=== PATIENT | male | born 1980 | race Hispanic/Latino ===

== ENCOUNTER 2016-11-25 14:03 | Emergency (ER) | payer OTHER ==
[~2016-11-25] VITALS: Ht 182.9 cm; Wt 87.1 kg
[~2016-11-25 14:03] MED LIST: HYDROXYZINE HCL25 M2 PO; HYDROXYZINE HCL50 M1 PO; MEDROL4 M2 PO; NAPROSYN500 M1 PO; PREDNISONE10 M2 PO; PRILOSEC20 M1 PO; TRAMADOL HCL50 M1 PO
[2016-11-25 14:32] LABS: ABSOLUTE BASOPHIL COUNT 0 /CUMM (0.0-0.2); ABSOLUTE EOSINOPHIL COUNT 0.2 /CUMM (0.0-0.7); ABSOLUTE GRANULOCYTE CT 4.3 /CUMM (1.4-6.5); ABSOLUTE LYMPH COUNT 2.8 /CUMM (1.2-3.4); ABSOLUTE MONOCYTE COUNT 0.6 /CUMM (0.10-0.60); BASOPHIL % 0.4 % (0.0-2.0); EOSINOPHIL % 2.1 % (0-5); GRANULOCYTE % 54.5 % (42.2-75.2); HEMATOCRIT 40.3 % (42-52); MEAN CORPUSCULAR HGB 27.8 PG (27.0-31.0); MEAN CORPUSCULAR HGB CONC 33.9 G/DL (33.0-37.0); MEAN CORPUSCULAR VOLUME 82.1 FL (80.0-94.0); MEAN PLATELET VOLUME 8.8 FL (7.4-10.4); PLATELET COUNT 261 /CUMM (130-400); RBC DISTRIBUTION WIDTH 13.8 % (11.5-14.5); RED BLOOD CELL CT 4.91 /CUMM (4.70-6.10); WHITE BLOOD CELL COUNT 7.9 /CUMM (4.8-10.8)
--- NOTE | 2016-11-25 16:22 | ED GI/GU/ABDOMINAL COMPLAINT ---
History of Present Illness General Chief Complaint: General Adult Stated Complaint: RECTAL BLEEDING Source: patient Exam Limitations: no limitations Vital Signs & Intake/Output Vital Signs & Intake/Output Vital Signs Date Time Temp Pulse Resp B/P Pulse O2 O2 Flow FiO2 Ox Delivery Rate 11/25 1630 98.4 70 18 122/59 97 Room Air Room Air Allergies Coded Allergies: Penicillins (UNKNOWN PER PT 11/25/16) Reconcile Medications Alprazolam 1 MG TABLET 1 TAB PO BID ANXIETY (Reported) Methadone HCl 10 MG/5 ML SOLUTION 60 MG PO DAILY MENTAL HEALTH (Reported) Triage Note: PT STATES HE WENT TO HAVE A BOWEL MOVEMENT AND HE HAD PURE RED BLOOD. PT BROUGTH TISSUE PAPER WITH HIM TO SHOW MD. Triage Nurses Notes Reviewed? yes Onset: Gradual Duration: waxing and waning, FEW MONTHS Timing: recent history Quality/Severity: mild Location: RECTAL Activities at Onset: BM No Modifying Factors: none Associated Symptoms: RECTAL PAIN WITH BOWEL MOVEMENT HPI: 36 year old male who presents with a few months worth of bright red blood per rectum after BM's for the past few months. Blood is both in the toilet bowl and on the paper. Admits to constipation in past with straining. History of hemorrhoids. He was evaluated by GI a few months ago and told it was likely secondary to straining. Past History Travel History Traveled to [place] past 21 day No Medical History Any Pertinent Medical History? 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 No Review of Systems Review of Systems Constitutional: Denies: chills, fever. EENTM: Reports: no symptoms. Respiratory: Denies: cough, short of breath. Cardiovascular: Denies: chest pain. GI: Reports: see HPI (RECTAL PAIN). Genitourinary: Denies: discharge, dysuria. Musculoskeletal: Reports: no symptoms. Skin: Reports: no symptoms. Neurological/Psychological: Reports: anxiety. Hematologic/Endocrine: Reports: bleeding. Immunologic/Allergic: Denies: splenectomy. All Other Systems: Reviewed and Negative Physical Exam Physical Exam General Appearance: well developed/nourished, alert, awake, anxious, mild distress Head: atraumatic, normal appearance Eyes: Bilateral: normal appearance, PERRL, normal inspection. Ears, Nose, Throat, Mouth: hearing grossly normal, moist mucous membrane Neck: normal inspection, supple, full range of motion Respiratory: normal breath sounds, chest non-tender, no respiratory distress Cardiovascular: regular rate/rhythm Peripheral Pulses: 2+ radial (R), 2+ radial (L) Gastrointestinal: normal bowel sounds, soft, non-tender Rectal: SMALL NONINFLAMED HEMORRHOIDS Back: normal inspection, normal range of motion Extremities: normal range of motion Neurologic/Psych: no motor/sensory deficits, awake, alert, oriented x 3 Skin: intact, normal color, warm/dry Core Measures ACS in differential dx? No Severe Sepsis Present: No Septic Shock Present: No Progress Differential Diagnosis: HEMORRHOIDS, RECTAL FISSUE, DIVERTICULOSIS, ULCERATIVE COLITIS Plan of Care: Orders Procedure Date/time Status MISTAKE 11/25 1657 Active URINALYSIS 11/25 1413 Complete LACTIC ACID 11/25 1413 Complete COMPREHENSIVE METABOLIC PANEL 11/25 1413 Complete CBC WITHOUT DIFFERENTIAL 11/25 1413 Complete Laboratory Tests 11/25/16 1528: Urine Color YEL, Urine Clarity CLEAR, Urine pH 6.0, Ur Specific [place] >= 1.030 , Urine Protein NEG, Urine Ketones TRACE H, Urine Nitrite NEG, Urine Bilirubin NEG, Urine Urobilinogen 0.2, Ur Leukocyte Esterase NEG, Ur Microscopic EXAM NOT REQUIRED, Urine Hemoglobin NEG, Urine Glucose NEG 11/25/16 1426: Anion Gap 9, Estimated GFR > 60, BUN/Creatinine Ratio 7.8, Glucose 99, Lactic Acid 1.0, Calcium 8.9, Total Bilirubin 0.3, AST 26, ALT 29, Alkaline Phosphatase 74, Total Protein 6.7, Albumin 3.8, Globulin 2.9, Albumin/Globulin Ratio 1.3, CBC w Diff NO MAN DIFF REQ, RBC 4.91, MCV 82.1, MCH 27.8, RDW 13.8, MPV 8.8, Gran % 54.5, Lymphocytes % 35.2, Monocytes % 7.8, Eosinophils % 2.1, Basophils % 0.4, Absolute Granulocytes 4.3, Absolute Lymphocytes 2.8, Absolute Monocytes 0.6 , Absolute Eosinophils 0.2, Absolute Basophils 0, PUBS MCHC 33.9 H/H WNL. ORTHOSTATICS NEGATIVE. (TIANA RODGERS,LETI) Initial ED EKG: none Departure Departure Time of Disposition: 1718 Disposition: HOME OR SELF CARE Condition: Stable Clinical Impression Primary Impression: GI bleeding Secondary Impressions: Hemorrhoids Referrals: DARIO SEVERINO JR, DO PATIENT HAS NO PRIMARY CARE DR (PCP/Family) ANN MARIE RODGERS,LIDA Kong Additional Instructions: FOLLOW UP WITH THE GI DOCTOR OR [facility] SPECIAL[facility] LISTED. RETURN NEEDED. Departure Forms: Customer Survey General Discharge Information
[2016-11-25 16:30] VITALS: BP 122/59
[2016-11-25] MEDS ORDERED: METHADONE10 MG/5 M2 PO (16:30)
[2016-11-25] MEDS ORDERED: ALPRAZOLAM1 M2 PO (16:31)
== END 2016-11-25 17:34 ==
LOC: ERH 14:03
PROVIDERS: Emergency Medicine
DX: K92.2 Gastrointestinal hemorrhage, unspecified (principal); K64.9 Unspecified hemorrhoids
CPT/HCPCS: 81003

== ENCOUNTER 2017-05-03 15:00 | Emergency (ER) | payer OTHER ==
[~2017-05-03 15:00] MED LIST changes: +ALPRAZOLAM1 M2 PO; +METHADONE10 MG/5 M2 PO
[2017-05-03 15:07] VITALS: BP 117/77
[2017-05-03] MEDS ORDERED: MEDROL4 M2 PO (16:19)
[2017-05-03] MEDS ORDERED: PERMETHRIN60 GM TOP (16:19)
[2017-05-03] MEDS ORDERED: VIGAMOX3 ML OPH (16:19)
--- NOTE | 2017-05-03 16:20 | ED GENERAL ADULT ---
History of Present Illness General Chief Complaint: Skin Rash/ Abcess Stated Complaint: RASH ALL OVER BODY; EYE PAIN Source: patient Exam Limitations: no limitations Vital Signs & Intake/Output Vital Signs & Intake/Output Vital Signs Date Time Temp Pulse Resp B/P B/P Pulse O2 O2 Flow FiO2 Mean Ox Delivery Rate 05/03 1515 97.7 05/03 1507 97.7 64 16 117/77 97 Room Air Allergies Coded Allergies: Penicillins (UNKNOWN PER PT 11/25/16) Reconcile Medications Alprazolam 1 MG TABLET 1 TAB PO BID ANXIETY (Reported) Methadone HCl 10 MG/5 ML SOLUTION 80 MG PO DAILY MENTAL HEALTH (Reported) Methylprednisolone. (Medrol) 4 MG TAB.DS.PK 1 DP PO AD RASH 6 on day 1 then reduce by one tablet daily until gone Moxifloxacin Hydrochloride (Vigamox) 0.5 % DROPS 1 GTT OPH TID CONJUNCTIVITIS Permethrin 5 % CREAM..G. 1 MARINE TOP ONCE SCABIES massage into skin from head to soles of feet one time, leave on for 8-14 hours then remove by thorough washing Triage Note: TRIAGE: PRESENTS WITH C/C PAIN AND "POISON DAY RASH" ALL OVER BODY X1 MONTH, LUMPS PRESENTED APPROX 2 WEEKS AGO. UPON INSPECTION, IRRITATED RAISED BUMPS AND APPARENT BITE DONG NOTED TO BILATERAL UPPER AND LOWER EXTREMITIES, NECK, AND HEAD, AND TORSO. PT REPORTS HAVING A DOG AT HOME AND UNSURE OF FLEA AND TICK STATUS. 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 PT MEDICATED WITH MOTRIN FOR PAIN AND INFLAMMATION TO BITE LEON AREAS IN TRIAGE. Triage Nurses Notes Reviewed? yes Onset: Gradual Duration: worse persistent since (2 WEEKS) Timing: remote history Injury Environment: home Severity: moderate Severity Numbers: 8 No Modifying Factors: none HPI: Patient is a 37-year-old male presenting to the emergency department with chief complaint of diffuse rash on the upper extremities, lower extremities and trunk that thing going on and off for the past one month. Patient reports that this started off with "poison day" over the left upper extremity and that went away and then this rash started 2 weeks ago. Reports is very pruritic. Has tried [id number] topical agents without relief. Denies any nausea vomiting fevers or chills chest pain or shortness of breath. No recent travel. Does report his son has similar rash as well. His son recently came home from staying at their consults for a while. According to mom knowing there has similar rash. Mom does not have similar rash. Patient reporting that he is having bilateral eye burning sensation after taking his contacts out this morning. Denies any trauma. No foreign body sensation. Reports they have been tearing. Tried Visine with some reduction in redness. Denies any pearly drainage. No recent fevers or congestion. (RAZA DUVALL) Past History Travel History Traveled to [place] past 21 day No Medical History Any Pertinent Medical History? 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 No (RAZA DUVALL) Review of Systems Review of Systems Constitutional: Reports: no symptoms. Comments Review of systems: See HPI, All other systems negative. Constitutional, no chills fever or weight loss HEENT: No visual changes no sore throat no congestion Cardiovascular: No chest pain ,palpitation , orthopnea or ankle swelling Skin, no jaundice Respiratory: No dyspnea cough sputum or hemoptysis GI: No nausea no vomiting : No dysuria No hematuria Muscle skeletal: no back pain, no neck pain, Neurologic: No numbness no confusion, no headaches Psych: No stress anxiety Immunology: No splenectomy or history of AIDS (RAZA DUVALL) Physical Exam Physical Exam General Appearance: well developed/nourished, no apparent distress, alert, awake , comfortable Comments: Well-developed well-nourished person in no acute distress HEENT: Nose is atraumatic. Pharynx normal. No swelling or edema. Pupils are equal round reactive to light and accommodation bilaterally. Upon fluorescein staining there is a 1 cm corneal abrasion noted on the right cornea at the 6 o' clock position. There is a smaller 0.5 cm corneal abrasion noted on the left cornea at the 3 o'clock position. No foreign bodies appreciated with visualization. Neck: Normal inspection Cardiovascular: Regular rate and rhythms no murmurs rubs or gallops, normal JVP Respiratory: Chest nontender. No respiratory distress.breath sounds clear to auscultation bilaterally Extremity: No edema Neuro: Alert oriented x3 Skin: Diffuse erythematous linear distributed rash noted on the trunk, the back and lower extremity. Scabbing present over these lesions and excoriations present as well. PSYCH: Normal mood and affect. Core Measures ACS in differential dx? No CVA/TIA Diagnosis: No Severe Sepsis Present: No Septic Shock Present: No (RAZA DUVALL) Progress Differential Diagnoses I considered the following diagnoses in my evaluation of the patient: Corneal abrasion, corneal ulcer, scabies, nonspecific rash, contact dermatitis, atypical dermatitis Plan of Care: Patient does not have any rashing in the webbed spaces, rashes somewhat linear in distribution. Cannot exclude scabies at this time due to Sons presentation. Patient was treated with permethrin as well as prednisone. He'll continue taking Benadryl [id number]. Patient also has corneal abrasion. Advised not to wear contacts for the next 1 week. He will be started on Vigamox for corneal abrasions around any secondary infection. He will return for any worsening symptoms or concerns. Initial ED EKG: none (RAZA DUVALL) Departure Departure Time of Disposition: 1617 Disposition: ER WALKOUT Condition: Stable Clinical Impression Primary Impression: Rash Secondary Impressions: Corneal abrasion Qualifiers: Encounter type: initial encounter Laterality: unspecified laterality Qualified Code: S05.00XA - Injury of conjunctiva and corneal abrasion without foreign body, unspecified eye, initial encounter Referrals: PATIENT HAS NO PRIMARY CARE DR (PCP/Family) Additional Instructions: Follow-up with your primary care physician call TO MAKE appointment. Use permethrin cream as prescribed. Wash all clothing and very hot water as well as bedding. Take steroids as prescribed to help with itching. He can also use [id number] Benadryl as directed. Return for worsening symptoms or concerns. Departure Forms: Customer Survey General Discharge Information Prescriptions: Current Visit Scripts Permethrin 1 MARINE TOP ONCE #60 GM massage into skin from head to soles of feet one time, leave on for 8-14 hours then remove by thorough washing Methylprednisolone. (Medrol) 1 DP PO AD #1 DP 6 on day 1 then reduce by one tablet daily until gone Moxifloxacin Hydrochloride (Vigamox) 1 GTT OPH TID #3 ML (RAZA DUVALL) PA/CARD SORTER Co-Sign Statement Statement: ED Attending supervision documentation- [] I saw and evaluated the patient. I have also reviewed all the pertinent lab results and diagnostic results. I agree with the findings and the plan of care as documented in the PA's/CARD SORTER's documentation. [X] I have reviewed the ED Record and agree with the PA's/CARD SORTER's documentation. [] Additions or exceptions (if any) to the PAs/CARD SORTER's note and plan are summarized below: [] (TIANA RODGERS,LETI) Procedures Additional Procedures Additional Procedures: FLOURSCENE STAIN Progress: Tetracaine drops, 2 drops each eye applied, fluorescein stain applied to both eyes. Corneal abrasions noted bilaterally with use of wood lamp.PT TOELRATED PROCEDURE WELL. (RAZA DUVALL) Critical Care Note Critical Care Note Critical Care Time: non-applicable (RAZA DUVALL)
== END 2017-05-03 17:37 ==
LOC: ERH 15:00
DX: S05.01XA Injury of conjunctiva and corneal abrasion without foreign body, right eye, initial encounter (principal); S05.02XA Injury of conjunctiva and corneal abrasion without foreign body, left eye, initial encounter; R21 Rash and other nonspecific skin eruption; X58.XXXA Exposure to other specified factors, initial encounter